=== PATIENT | male | born 1950 | race Caucasian/White ===

== ENCOUNTER → 2022-05-23 | Day surgery (SDC) | payer MEDICARE ==
[~2022-05-23] MED LIST: FISH OIL 1,2001 EACH PO; FLINTSTONES1 EAC1 PO; SYNTHROID75 MCG PO; TRIBENZOR 40-51 EACH PO; VIAGRA25 MG PO
== END | disposition home or self-care (01) ==
LOC: OR 05:48
PROVIDERS: Surgery
PROC: 0DJD8ZZ Inspection of Lower Intestinal Tract, Via Natural or Artificial Opening Endoscopic (ICD-10-PCS; principal; 2022-05-23 07:30)
DX: R19.5 Other fecal abnormalities (principal); K21.9 Gastro-esophageal reflux disease without esophagitis; I10 Essential (primary) hypertension; E78.5 Hyperlipidemia, unspecified; E03.9 Hypothyroidism, unspecified; N40.0 Benign prostatic hyperplasia without lower urinary tract symptoms; D50.0 Iron deficiency anemia secondary to blood loss (chronic); Z79.890 Hormone replacement therapy; Z79.899 Other long term (current) drug therapy
CPT/HCPCS: J2704